=== PATIENT | female | born 1955 | race Caucasian/White ===

== ENCOUNTER 2016-11-03 19:49 | Inpatient (IN) | payer OTHER ==
[~2016-11-03] VITALS: Ht 170.2 cm; Wt 86.0 kg
[~2016-11-03 19:49] MED LIST: ELA10 PO; [UNRECOGNIZED DRUG - CODE]
[2016-11-03] MEDS ORDERED: ATENOLOL50 MG PO (20:30)
[2016-11-03] MEDS ORDERED: AMITRIPTYLINE H25 MG PO (20:30)
[2016-11-03 20:45] LABS: PLATELET COUNT 333 x10^3mcL (130-400)
[2016-11-03 20:52] LABS: CALCIUM 9.3 mg/dL (8.5-10.1); CARBON DIOXIDE 26.8 mmol/L (21-32); CHLORIDE SERUM 102 mmol/L (98-107); CREATININE SERUM 0.9 mg/dL (0.6-1.0); GFR1 > 60 mL/min; GLUCOSE SERUM 106 mg/dL (74-106); POTASSIUM SERUM 3.4 mmol/L (3.5-5.1); SODIUM SERUM 137 mmol/L (136-145)
[2016-11-03 20:57] LABS: ALKALINE PHOSPHATASE 721 U/L (46-116); ALT/SGPT 397 U/L (14-59); AMYLASE 26 U/L (25-115); AST/SGOT 179 U/L (15-37); LIPASE 115 IU/L (73-393); TOTAL PROTEIN, SERUM 7.5 g/dL (6.4-8.2)
[2016-11-03 20:58] LABS: ALBUMIN 3.3 g/dL (3.4-5.0)
[2016-11-03 20:58] LABS: UA SPECIFIC GRAVITY 1.025 (1.005-1.035); microscopic required? YES; urine erythrocyte NEGATIVE (NEGATIVE)
[2016-11-03 21:00] LABS: BILIRUBIN TOTAL 16.08 mg/dL (0.20-1.00)
[2016-11-03 21:41] LABS: BAND NEUTROPHIL 4 % (0-10); BASOPHIL 0 % (0-2); MONOCYTE 5 % (0-7); SEGMENTED NEUTROPHILS 51 % (37-75)
[2016-11-03 21:42] LABS: rbc morphology (normal/abnorm) ABNORMAL (NORMAL)
[2016-11-03 21:44] LABS: target cell (codocyte) 2+; tear drop cell (dacryocyte) 1+
[2016-11-03 21:45] LABS: PLATELET MORPHOLOGY A
[2016-11-03 22:13] LABS: T3 TOTAL 0.82 ng/mL
[2016-11-03 22:17] LABS: CHOLESTEROL/HDL RATIO 48.7; FREE T4 1.13 ng/dL (0.76-1.46); T4(THYROXINE) 9.7 ug/dL (4.7-13.3)
[2016-11-03 22:44] VITALS: BP 132/66
[2016-11-03 23:13] VITALS: Ht 170.2 cm; Wt 86.0 kg
[2016-11-04 06:17] VITALS: BP 141/63
[2016-11-04 06:58] LABS: CALCIUM 8.8 mg/dL (8.5-10.1); CARBON DIOXIDE 19.8 mmol/L (21-32); CHLORIDE SERUM 102 mmol/L (98-107); CREATININE SERUM 0.6 mg/dL (0.6-1.0); GFR1 > 60 mL/min; GLUCOSE SERUM 91 mg/dL (74-106); MAGNESIUM 2.1 mg/dL (1.8-2.4); PHOSPHOROUS 3.2 mg/dL (2.5-4.9); POTASSIUM SERUM 4.2 mmol/L (3.5-5.1); SODIUM SERUM 134 mmol/L (136-145)
[2016-11-04 07:43] LABS: PLATELET COUNT 290 x10^3mcL (130-400)
[2016-11-04 09:29] LABS: BAND NEUTROPHIL 4 % (0-10); BASOPHIL 0 % (0-2); MONOCYTE 5 % (0-7); SEGMENTED NEUTROPHILS 55 % (37-75); rbc morphology (normal/abnorm) ABNORMAL (NORMAL)
[2016-11-04 09:30] LABS: target cell (codocyte) 2+
[2016-11-04 14:31] VITALS: BP 172/65
[2016-11-04 15:31] VITALS: BP 148/62
[2016-11-04 17:45] VITALS: BP 162/73
[2016-11-04 22:33] VITALS: BP 165/64
[2016-11-05 01:59] VITALS: BP 166/75
[2016-11-05 02:00] VITALS: BP 166/75
[2016-11-05 05:38] VITALS: BP 154/62
[2016-11-05 06:59] LABS: PLATELET COUNT 281 x10^3mcL (130-400)
[2016-11-05 07:07] LABS: RED CELL DISTRIBUTION WIDTH 18.6 % (11.5-14.5)
[2016-11-05 07:11] LABS: PHOSPHOROUS 3.2 mg/dL (2.5-4.9)
[2016-11-05 07:21] LABS: ALKALINE PHOSPHATASE 579 U/L (46-116); ALT/SGPT 407 U/L (14-59); AST/SGOT 233 U/L (15-37); BILIRUBIN TOTAL 7.75 mg/dL (0.20-1.00); CALCIUM 8.8 mg/dL (8.5-10.1); CARBON DIOXIDE 26.7 mmol/L (21-32); CHLORIDE SERUM 105 mmol/L (98-107); CREATININE SERUM 0.8 mg/dL (0.6-1.0); GFR1 > 60 mL/min; GLUCOSE SERUM 107 mg/dL (74-106); POTASSIUM SERUM 3.5 mmol/L (3.5-5.1); SODIUM SERUM 139 mmol/L (136-145); TOTAL PROTEIN, SERUM 6.4 g/dL (6.4-8.2)
[2016-11-05 07:40] LABS: ALBUMIN 2.6 g/dL (3.4-5.0)
[2016-11-05 09:11] VITALS: BP 153/59
[2016-11-05 09:57] LABS: BAND NEUTROPHIL 5 % (0-10); BASOPHIL 0 % (0-2); MONOCYTE 6 % (0-7); SEGMENTED NEUTROPHILS 57 % (37-75); rbc morphology (normal/abnorm) ABNORMAL (NORMAL); target cell (codocyte) 1+
[2016-11-05 12:11] VITALS: BP 153/59
== END 2016-11-05 13:38 | disposition home or self-care (01) | DRG 391 ==
LOC: ED 19:49 → DU 21:24
PROVIDERS: Emergency Medicine; Family Medicine; Internal Medicine; ADMIT Family Medicine
PROC: 0F798DZ Dilation of Common Bile Duct with Intraluminal Device, Via Natural or Artificial Opening Endoscopic (ICD-10-PCS; principal; 2016-11-04 07:30)
DX: K57.10 Diverticulosis of small intestine without perforation or abscess without bleeding (principal); K83.1 Obstruction of bile duct; N17.0 Acute kidney failure with tubular necrosis; E43 Unspecified severe protein-calorie malnutrition; N39.0 Urinary tract infection, site not specified; I10 Essential (primary) hypertension; I34.1 Nonrheumatic mitral (valve) prolapse; E78.5 Hyperlipidemia, unspecified; F41.9 Anxiety disorder, unspecified; F32.9 Major depressive disorder, single episode, unspecified; F17.210 Nicotine dependence, cigarettes, uncomplicated; Z68.29 Body mass index [BMI] 29.0-29.9, adult
CPT/HCPCS: 43262; 83880; 84439; C1769; C2625; J0360; J1610; J1956; J2175; J2250; J2704; J3010; J3490; J7030; J7120; Q0092; Q0163; Q9967

== ENCOUNTER 2016-11-27 06:57 | Emergency (ER) | payer OTHER ==
[~2016-11-27 06:57] MED LIST changes: +AMITRIPTYLINE H25 MG PO; +ATENOLOL50 MG PO
[2016-11-27 07:41] LABS: BASOPHIL % 1.3 % (0-2); PLATELET COUNT 380 x10^3mcL (130-400)
[2016-11-27 07:53] LABS: CARBON DIOXIDE 27.2 mmol/L (21-32); POTASSIUM SERUM 4.4 mmol/L (3.5-5.1)
[2016-11-27 07:57] LABS: ALBUMIN 3.4 g/dL (3.4-5.0); BILIRUBIN TOTAL 1.4 mg/dL (0.20-1.00); TOTAL PROTEIN, SERUM 7.5 g/dL (6.4-8.2)
[2016-11-27 08:36] LABS: RED CELL DISTRIBUTION WIDTH 16.3 % (11.5-14.5)
[2016-11-27 09:30] LABS: microscopic required? NO
[2016-11-27 10:19] LABS: UA SPECIFIC GRAVITY 1.025 (1.005-1.035); urine erythrocyte NEGATIVE (NEGATIVE)
[2016-11-27 11:49] VITALS: BP 144/82
== END 2016-11-27 11:50 | disposition home or self-care (01) ==
LOC: ED 06:57
PROVIDERS: Emergency Medicine
DX: R11.10 Vomiting, unspecified (principal); I10 Essential (primary) hypertension; R19.7 Diarrhea, unspecified; F17.210 Nicotine dependence, cigarettes, uncomplicated; Z88.5 Allergy status to narcotic agent; Z71.6 Tobacco abuse counseling
CPT/HCPCS: 83880; 99406; J2405; J7030

== ENCOUNTER 2018-07-19 10:45 | Emergency (ER) | payer OTHER ==
[~2018-07-19] VITALS: Ht 170.2 cm; Wt 85.3 kg
[2018-07-19 10:51] VITALS: Ht 170.2 cm; Wt 85.3 kg
[2018-07-19 12:56] LABS: BASOPHIL % 0.9 % (0-2); PLATELET COUNT 295 x10^3mcL (130-400); RED CELL DISTRIBUTION WIDTH 13.9 % (11.5-14.5)
[2018-07-19 13:14] LABS: CALCIUM 8.6 mg/dL (8.5-10.1); CARBON DIOXIDE 31.8 mmol/L (21-32); CHLORIDE SERUM 103 mmol/L (98-107); CREATININE SERUM 0.9 mg/dL (0.6-1.0); GFR1 > 60 mL/min; GLUCOSE SERUM 75 mg/dL (74-106); POTASSIUM SERUM 3.9 mmol/L (3.5-5.1); SODIUM SERUM 140 mmol/L (136-145)
[2018-07-19 13:19] LABS: ALBUMIN 3.6 g/dL (3.4-5.0); ALKALINE PHOSPHATASE 158 U/L (46-116); ALT/SGPT 33 U/L (14-59); AST/SGOT 16 U/L (15-37); BILIRUBIN TOTAL 0.35 mg/dL (0.20-1.00); TOTAL PROTEIN, SERUM 7.7 g/dL (6.4-8.2)
[2018-07-19 15:35] VITALS: BP 152/98
== END 2018-07-19 15:35 | disposition home or self-care (01) ==
LOC: ED 10:45
PROVIDERS: Emergency Medicine
DX: R06.00 Dyspnea, unspecified (principal); R91.1 Solitary pulmonary nodule; I10 Essential (primary) hypertension; Z88.5 Allergy status to narcotic agent; Z90.89 Acquired absence of other organs
CPT/HCPCS: 36415; 83880; 85378; Q0092; Q9967

== ENCOUNTER 2018-08-21 10:54 | Emergency (ER) | payer OTHER ==
[~2018-08-21] VITALS: Ht 170.2 cm; Wt 83.9 kg
[2018-08-21 11:03] VITALS: Ht 170.2 cm; Wt 83.9 kg
[2018-08-21 12:10] VITALS: BP 153/80
== END 2018-08-21 12:10 | disposition home or self-care (01) ==
LOC: ED 10:54
DX: R51 Headache (principal); R10.30 Lower abdominal pain, unspecified; I10 Essential (primary) hypertension; F17.210 Nicotine dependence, cigarettes, uncomplicated; V43.52XA Car driver injured in collision with other type car in traffic accident, initial encounter; Y93.I9 Activity, other involving external motion; Y92.488 Other paved roadways as the place of occurrence of the external cause; Y99.8 Other external cause status

== ENCOUNTER 2018-12-04 14:42 | Emergency (ER) | payer OTHER ==
[~2018-12-04] VITALS: Ht 170.2 cm; Wt 86.2 kg
[2018-12-04 15:08] VITALS: Ht 170.2 cm; Wt 86.2 kg
[2018-12-04 16:59] LABS: BASOPHIL % 1.3 % (0-2); PLATELET COUNT 320 x10^3mcL (130-400); RED CELL DISTRIBUTION WIDTH 14.3 % (11.5-14.5)
[2018-12-04 17:59] LABS: ALKALINE PHOSPHATASE 187 U/L (46-116); ALT/SGPT 39 U/L (14-59); AST/SGOT 20 U/L (15-37); BILIRUBIN TOTAL 0.35 mg/dL (0.20-1.00); CALCIUM 8.8 mg/dL (8.5-10.1); CHLORIDE SERUM 101 mmol/L (98-107); GFR1 > 60 mL/min; GLUCOSE SERUM 97 mg/dL (74-106); MAGNESIUM 2.2 mg/dL (1.8-2.4); POTASSIUM SERUM 3.7 mmol/L (3.5-5.1); SODIUM SERUM 139 mmol/L (136-145); T3 TOTAL 1.58 ng/mL; TOTAL PROTEIN, SERUM 8.1 g/dL (6.4-8.2)
[2018-12-04 18:04] LABS: CREATININE SERUM 0.9 mg/dL (0.6-1.0)
[2018-12-04 18:07] LABS: FREE T4 1.04 ng/dL (0.76-1.46); FREE THYROXINE INDEX 2.5 ug/dL (1.4-4.5); T4(THYROXINE) 8.2 ug/dL (4.7-13.3)
[2018-12-04 18:55] VITALS: BP 155/81
== END 2018-12-04 18:55 | disposition home or self-care (01) ==
LOC: ED 14:42
PROVIDERS: Emergency Medicine
DX: R00.2 Palpitations (principal); I10 Essential (primary) hypertension; Z88.5 Allergy status to narcotic agent; Z91.040 Latex allergy status; Z90.89 Acquired absence of other organs
CPT/HCPCS: 36415; 84439; Q0092

== ENCOUNTER 2019-02-14 15:53 | Emergency (ER) | payer OTHER ==
[~2019-02-14] VITALS: Ht 170.2 cm; Wt 86.2 kg
[2019-02-14 16:14] VITALS: Ht 170.2 cm; Wt 86.2 kg
[2019-02-14 19:05] VITALS: BP 128/70
== END 2019-02-14 19:05 | disposition home or self-care (01) ==
LOC: ED 15:53
DX: R50.9 Fever, unspecified (principal); R05 Cough; I10 Essential (primary) hypertension; Z90.89 Acquired absence of other organs; Z88.5 Allergy status to narcotic agent; Z88.1 Allergy status to other antibiotic agents; Z91.040 Latex allergy status
CPT/HCPCS: Q0092